=== PATIENT | female | born 1980 | race African-American/Black ===

== ENCOUNTER 2017-09-02 18:53 | Emergency (ER) | payer OTHER ==
[2017-09-02 19:23] LABS: URINE HCG POC HCG NEGATIVE (Negative)
[2017-09-02 19:26] LABS: BILIRUBIN,URINE NEGATIVE (NEG); CLARITY,URINE CLEAR; COLOR,URINE YELLOW; GLUCOSE,URINE NEGATIVE (NEG); NITRITE,URINE NEGATIVE (NEG); PH,URINE 6.5; PROTEIN,URINE NEGATIVE (NEG-TRACE); UROBILINOGEN,URINE 0.2 mg/dL (0.2 mg/dL)
[2017-09-02] MEDS: IV NORMAL SALINE 1000ML BAG 1,000 ML IV (19:50)
[2017-09-02] MEDS: PROCHLORPERAZINE 10 MG/2 ML VIAL. IV (19:51)
[2017-09-02] MEDS: KETOROLAC 30 MG/ML INJ. IV (19:51)
[2017-09-02] MEDS: diphenhydrAMINE 50 MG/ML VIAL IVP (19:55)
[2017-09-02 19:58] LABS: BACTERIA,URINE MODERATE /HPF (0-FEW); RBC,URINE 0 /HPF (0-2); SQUAMOUS EPITHELIAL CELL,UR MOD /LPF; WBC,URINE OCC /HPF (0-4)
[2017-09-02] MEDS: hydrALAZINE 20 MG/ML VIAL. IVP (20:29)
[2017-09-02] MEDS: fentaNYL PF VIAL 100 MCG/2 ML VIAL IV ×2 (20:30→21:36)
== END 2017-09-02 22:00 | disposition home or self-care (01) ==
LOC: ER 18:53
DX: G43.909 Migraine, unspecified, not intractable, without status migrainosus (principal); I10 Essential (primary) hypertension
CPT/HCPCS: 70450; 81001; 81025; 87086; 96361; 96374; 96375; 96376; 99285-25; J0360; J0780; J1200; J1885; J3010; J7030

== ENCOUNTER 2017-09-15 18:35 | Emergency (ER) | payer OTHER ==
[2017-09-15 19:25] LABS: URINE HCG POC HCG NEGATIVE (Negative)
[2017-09-15] MEDS: IV NORMAL SALINE 1000ML BAG 1,000 ML IV (20:14)
[2017-09-15] MEDS: diphenhydrAMINE 50 MG/ML VIAL IVP (20:14)
[2017-09-15] MEDS: PROCHLORPERAZINE 10 MG/2 ML VIAL. IV (20:14)
[2017-09-15] MEDS: KETOROLAC 30 MG/ML INJ. IV (20:15)
== END 2017-09-15 21:29 | disposition home or self-care (01) ==
LOC: ER 21:29
DX: S16.1XXA Strain of muscle, fascia and tendon at neck level, initial encounter (principal); G43.909 Migraine, unspecified, not intractable, without status migrainosus; I10 Essential (primary) hypertension; X58.XXXA Exposure to other specified factors, initial encounter; Y93.89 Activity, other specified; Y99.8 Other external cause status; Y92.89 Other specified places as the place of occurrence of the external cause
CPT/HCPCS: 81025; 96361; 96374; 96375; 99284-25; J0780; J1200; J1885; J7030